=== PATIENT | female | born 1940 | race Hispanic/Latino ===

== ENCOUNTER → 2022-12-09 | Outpatient (CLI) | payer OTHER | LOC: DX 08:23 | PROVIDERS: ATTEND Internal Medicine | DX: M81.8 Other osteoporosis without current pathological fracture (principal) | CPT/HCPCS: 77080 ==

== ENCOUNTER → 2023-06-15 | Outpatient (REF) | payer BC | LOC: MRI 06-14 08:37 | PROVIDERS: ATTEND Internal Medicine | DX: R51.9 Headache, unspecified (principal) | CPT/HCPCS: 70551 ==